=== PATIENT | female | born 1990 | race Caucasian/White ===

== ENCOUNTER 2018-01-21 20:21 | Emergency (ER) | payer OTHER ==
[2018-01-21] MEDS ORDERED: BABY ASPIRIN 81 MG CHEW PO ONE (20:49)
[2018-01-21] MEDS ORDERED: Sodium Chloride 0.9% 1000 ML 1,000 ML IV SCH (21:00)
[2018-01-21 21:10] LABS: BASOPHIL % 0.4 % (0.0-0.4); Basophil (Absolute #) 0.03 (0-0.4); Eosinophil % 1.6 % (0.00-5.0); Eosinophil (Absolute #) 0.13 (0-0.5); Granulocyte Absolute (ANC) 4.47 (1.4-6.9); Granulocytes % 54.7 % (36.0-66.0); Hematocrit 38.1 % (35-47); Hemoglobin 12.8 gm/dl (12.0-16.0); Lymphocyte (Absolute #) 3.05 (1.0-4.6); Lymphocytes % 37.4 % (24.0-44.0); Mean Cell Volume 86.8 fl (78-100); Mean Corpuscular Hemoglobin 29.2 pg (26-32); Mean Corpuscular Hgb Concent. 33.6 g/dl (32-36); Mean Platelet Volume 10.6 fl (6-9.5); Monocyte (Absolute #) 0.48 (0.0-1.3); Monocytes % 5.9 % (0.0-12.0); Platelet Count 325 K/mm3 (150-450); Red Blood Count 4.39 M/mm3 (4.1-5.4); Red Cell Distribution Width 13.4 % (11.5-14.0); White Blood Count 8.2 K/mm3 (4.0-10.5)
[2018-01-21] MEDS ORDERED: Sodium Chloride 0.9% 1000 ML 1,000 ML ONE (21:16)
[2018-01-21] MEDS ORDERED: BABY ASPIRIN 81 MG CHEW ONE (21:16)
[2018-01-21] MEDS ORDERED: Zofran 4 MG/2 ML VIAL IV ONE (21:25)
[2018-01-21] MEDS ORDERED: SUBLIMAZE 100 MCG/2 ML IV ONE (21:26)
--- NOTE | 2018-01-21 21:26 | ERPHSYRPT ---
- History of Present Illness Time Seen by Provider: 01/21/18 20:35 Historian: patient Exam Limitations: clinical condition Patient Subjective Stated Complaint: Pt arrives to ER with c/o chest pain intermittently for past couple days, became worse today at 1100 while sitting at work and became worse when home at 1700. Pt took Xanax at 1500 thinking was panic attac, denies it helping. points to right side of chest for pain that is tightness except when taking a deep breath becomes stabbing pain. Denies pain relieving factors. pt also c/o lightheadedness while driving home from work around 1630 and nausea all day without vomiting. Triage Nursing Assessment: Pt is tearfull during assessment and hyperventilating. Physician History: PATIENT WITH A HISTORY OF ANXIETY, LOWER EXTREMITY LYMPHEDEMA COMPLAINS OF SHARP RIGHT UPPER CHEST PAINS EXACERBATED UPON INSPIRATION, HAS OCCASIONAL COUGH. DENIES FEVER, CHILLS, DIFFICULTY BREATHING OR DYSPNEA. Timing/Duration: day(s) Activities at Onset: activity Quality: sharpness Location: other (RIGHT SIDED CHEST PAIN) Chest Pain Radiation: no radiation Severity of Pain-Max: moderate Severity of Pain-Current: moderate Modifying Factors: Improves With: breathing, change in position Associated Symptoms: cough, hurts to breathe Prior Chest Pain/Cardiac Workup: no prior chest pain Nitro Today/Relief: no nitro taken today Aspirin Treatment Today: 81 mg x 4, provided by ED Allergies/Adverse Reactions: peanut Allergy (Severe, Verified 01/21/18 20:41) Anaphylactic Reaction Penicillins Allergy (Verified 01/21/18 20:41) Home Medications: ALPRAZolam [Xanax ER 0.5MG] 0.5 mg PO 01/21/18 [History] Fluoxetine HCl [Prozac] 40 mg PO DAILY 01/21/18 [History] - Review of Systems Constitutional: No Fever, No Chills Eyes: No Symptoms Ears, Nose, & Throat: No Symptoms Respiratory: Cough, No Dyspnea Cardiac: Chest Pain, No Edema, No Syncope Abdominal/Gastrointestinal: No Abdominal Pain, No Nausea, No Vomiting, No Diarrhea Genitourinary Symptoms: No Symptoms, No Dysuria Musculoskeletal: No Symptoms, No Back Pain, No Neck Pain Skin: No Rash Neurological: No Dizziness, No Focal Weakness, No Sensory Changes Psychological: No Symptoms Endocrine: No Symptoms All Other Systems: Reviewed and Negative - Past Medical History Pertinent Past Medical History: Yes Cardiac History: Other Psycho-Social History: Anxiety Other Medical History: was told at [facility] and home when 21 years old had some congestive heart failure sx. - Past Surgical History Past Surgical History: Yes Gastrointestinal: Other Other Surgical History: colonoscopy - Social History Smoking Status: Never smoker Exposure to second hand smoke: No Drug Use: none Patient Lives Alone: No - Female History Hx Now: No - Nursing Vital Signs Nursing Vital Signs: Initial Vital Signs Temperature 98.4 F 01/21/18 20:25 Pulse Rate 97 H 01/21/18 20:25 Respiratory Rate 20 01/21/18 20:25 Blood Pressure 155/107 01/21/18 20:25 O2 Sat by Pulse Oximetry 100 01/21/18 20:25 Pain Scale Pain Intensity 6 - Physical Exam General Appearance: no apparent distress, alert Eye Exam: PERRL/EOMI, eyes nml inspection Ears, Nose, Throat Exam: normal ENT inspection, moist mucous membranes Neck Exam: normal inspection, non-tender, supple, full range of motion Respiratory Exam: normal breath sounds, chest tenderness (MARKED TENDERNESS RIGHT HEMITHORAX MID CLAVICULAR LINE 4TH TO 5TH INTERCOSTAL SPACE), lungs clear , No respiratory distress Cardiovascular Exam: regular rate/rhythm, normal heart sounds Gastrointestinal/Abdomen Exam: soft, No tenderness, No mass Back Exam: normal inspection, No CVA tenderness, No vertebral tenderness Extremity Exam: normal inspection, normal range of motion, swelling (BILATERAL LOWER EXTREMITY LYMPHEDEMA) Neurologic Exam: alert, oriented x 3, cooperative, normal mood/affect, sensation nml, No motor deficits Skin Exam: normal color, warm, dry SpO2: 100 Oxygen Delivery: Room Air - Course EKG Interpreted by Me: RATE, Sinus Rhythm, NORMAL AXIS, Non-specific ST Changes - Radiology Exams Chest X-ray Interpretation: Interpreted by me (RIGHT INFRAHILAR INFILTRATE) Ordered Tests: Active Orders 24 hr Category Date Time Status Ore [employer]er STAT Care 01/21/18 20:50 Active EKG-ER Only STAT Care 01/21/18 20:49 Active IV Insertion STAT Care 01/21/18 20:49 Active CHEST 1 VIEW (PORTABLE) Stat Exams 01/21/18 20:50 Taken CBC W DIFF Stat Lab 01/21/18 21:00 Completed CMP Stat Lab 01/21/18 21:00 Completed D-DIMER QUANTITATION Stat Lab 01/21/18 21:00 Completed HCG,QUALITATIVE URINE Stat Lab 01/21/18 Completed PROTIME WITH INR Stat Lab 01/21/18 21:00 Completed TROPONIN Q3H Lab 01/21/18 21:00 Completed TROPONIN Q3H Lab 01/22/18 00:00 Ordered TROPONIN Q3H Lab 01/22/18 03:00 Ordered TROPONIN Q3H Lab 01/22/18 06:00 Ordered TROPONIN Q3H Lab 01/22/18 09:00 Ordered Urine Triage Profile Stat Lab 01/21/18 21:23 Completed Medication Summary Generic Name Dose Route Start Last Admin Trade Name Freq PRN Reason Stop Dose Admin Sodium Chloride 1,000 mls @ 100 mls/hr 01/21/18 21:00 01/21/18 21:22 Sodium Chloride 0.9% 1000 Ml IV 02/20/18 20:59 100 mls/hr .Q10H MISSAEL Administration Discontinued Medications Generic Name Dose Route Start Last Admin Trade Name Freq PRN Reason Stop Dose Admin Aspirin 324 mg 01/21/18 20:49 01/21/18 21:22 Baby Aspirin 81 Mg Chew PO 01/21/18 20:50 324 mg STAT ONE Administration Aspirin Confirm 01/21/18 21:16 Baby Aspirin 81 Mg Chew Administered 01/21/18 21:17 Dose 324 mg .ROUTE .STK-MED ONE Fentanyl Citrate 100 mcg 01/21/18 21:26 01/21/18 21:34 Sublimaze 100 Mcg/2 Ml IV 01/21/18 21:27 100 mcg STAT ONE Administration Fentanyl Citrate Confirm 01/21/18 21:28 Sublimaze 100 Mcg/2 Ml Administered 01/21/18 21:29 Dose 100 mcg .ROUTE .STK-MED ONE Ketorolac Tromethamine 60 mg 01/21/18 22:39 01/21/18 22:44 Toradol 30 Mg Injection IM 01/21/18 22:40 60 mg STAT ONE Administration Ketorolac Tromethamine Confirm 01/21/18 22:38 Toradol 30 Mg Injection Administered 01/21/18 22:39 Dose 60 mg .ROUTE .STK-MED ONE Ketorolac Tromethamine Confirm 01/21/18 22:42 Toradol 30 Mg Injection Administered 01/21/18 22:43 Dose 60 mg .ROUTE .STK-MED ONE Ondansetron HCl 4 mg 01/21/18 21:25 01/21/18 21:34 Zofran 4 Mg/2 Ml Vial IV 01/21/18 21:26 4 mg STAT ONE Administration Ondansetron HCl Confirm 01/21/18 21:28 Zofran 4 Mg/2 Ml Vial Administered 01/21/18 21:29 Dose 4 mg .ROUTE .[facility] ONE Lab/Rad Data: Laboratory Result Diagrams 01/21/18 21:00 01/21/18 21:00 Laboratory Results 01/21/18 01/21/18 01/21/18 Range/Units Unknown 21:23 21:00 WBC (4.0-10.5) K/mm3 RBC (4.1-5.4) M/mm3 Hgb (12.0-16.0) gm/dl Hct (35-47) % MCV (78-100) fl MCH (26-32) pg MCHC (32-36) g/dl RDW (11.5-14.0) % Plt Count (150-450) K/mm3 MPV (6-9.5) fl Gran % (36.0-66.0) % Eos # (Auto) (0-0.5) Absolute Lymphs (auto) (1.0-4.6) Absolute Monos (auto) (0.0-1.3) Lymphocytes % (24.0-44.0) % Monocytes % (0.0-12.0) % Eosinophils % (0.00-5.0) % Basophils % (0.0-0.4) % Absolute Granulocytes (1.4-6.9) Basophils # (0-0.4) PT (9.95-12.35) SECONDS INR (0.8-3.0) D-Dimer (215-500) ng/mL Sodium (137-145) mmol/L Potassium (3.5-5.1) mmol/L Chloride (98-107) mmol/L Carbon Dioxide (22-30) mmol/L Anion Gap (5-15) MEQ/L BUN (7-17) mg/dL Creatinine (0.52-1.04) mg/dL Estimated GFR ML/MIN Glucose (74-106) mg/dL Calcium (8.4-10.2) mg/dL Total Bilirubin (0.2-1.3) mg/dL AST (14-36) U/L ALT (0-35) U/L Alkaline Phosphatase (38-126) U/L Troponin I < 0.012 (0.000-0.034) ng/mL Serum Total Protein (6.3-8.2) g/dL Albumin (3.5-5.0) g/dL Urine HCG, Qual NEGATIVE (Negative) Urine Opiates Level NEGATIVE (NEGATIVE) Ur Methadone NEGATIVE (NEGATIVE) Urine Barbiturates NEGATIVE (NEGATIVE) Ur Phencyclidine (PCP) NEGATIVE (NEGATIVE) Urine Amphetamine NEGATIVE (NEGATIVE) U Benzodiazepine Level POSITIVE (NEGATIVE) Urine Cocaine NEGATIVE (NEGATIVE) Urine Marijuana (THC) NEGATIVE (NEGATIVE) 01/21/18 01/21/18 01/21/18 Range/Units 21:00 21:00 21:00 WBC 8.2 (4.0-10.5) K/mm3 RBC 4.39 (4.1-5.4) M/mm3 Hgb 12.8 (12.0-16.0) gm/dl Hct 38.1 (35-47) % MCV 86.8 (78-100) fl MCH 29.2 (26-32) pg MCHC 33.6 (32-36) g/dl RDW 13.4 (11.5-14.0) % Plt Count 325 (150-450) K/mm3 MPV 10.6 H (6-9.5) fl Gran % 54.7 (36.0-66.0) % Eos # (Auto) 0.13 (0-0.5) Absolute Lymphs (auto) 3.05 (1.0-4.6) Absolute Monos (auto) 0.48 (0.0-1.3) Lymphocytes % 37.4 (24.0-44.0) % Monocytes % 5.9 (0.0-12.0) % Eosinophils % 1.6 (0.00-5.0) % Basophils % 0.4 (0.0-0.4) % Absolute Granulocytes 4.47 (1.4-6.9) Basophils # 0.03 (0-0.4) PT 11.6 (9.95-12.35) SECONDS INR 1.00 (0.8-3.0) D-Dimer < 215 L (215-500) ng/mL Sodium 142 (137-145) mmol/L Potassium 4.1 (3.5-5.1) mmol/L Chloride 106 (98-107) mmol/L Carbon Dioxide 25 (22-30) mmol/L Anion Gap 14.7 (5-15) MEQ/L BUN 16 (7-17) mg/dL Creatinine 0.83 (0.52-1.04) mg/dL Estimated GFR > 60.0 ML/MIN Glucose 97 (74-106) mg/dL Calcium 9.5 (8.4-10.2) mg/dL Total Bilirubin 0.20 (0.2-1.3) mg/dL AST 20 (14-36) U/L ALT 22 (0-35) U/L Alkaline Phosphatase 85 (38-126) U/L Troponin I (0.000-0.034) ng/mL Serum Total Protein 7.5 (6.3-8.2) g/dL Albumin 4.4 (3.5-5.0) g/dL Urine HCG, Qual (Negative) Urine Opiates Level (NEGATIVE) Ur Methadone (NEGATIVE) Urine Barbiturates (NEGATIVE) Ur Phencyclidine (PCP) (NEGATIVE) Urine Amphetamine (NEGATIVE) U Benzodiazepine Level (NEGATIVE) Urine Cocaine (NEGATIVE) Urine Marijuana (THC) (NEGATIVE) - Progress Progress: improved Progress Note: 01/21/18 23:29 IV NORMAL SALINE 200ML/HR, ZOFRAN 4MG, FENTANYL 0.1MG, IV, TORADOL 60MG IM Counseled pt/family regarding: lab results, diagnosis, rad results - Departure Time of Disposition: 21:34 Departure Disposition: Home Clinical Impression: PLEURISY, ACUTE BRONCHITIS Condition: Stable Critical Care Time: No Additional Instructions: ANTIBIOTIC ZITHROMAX 250MG, 2 TABLETS DAY 1 FOLLOWED BY 1 TABLET DAILY FOR 4 DAYS. TORADOL 10MG EVERY 6 HOURS FOR PAIN, TYLENOL #3 EVERY 6 HOURS FOR BREAK THROUGH PAIN. CONSULT YOUR PRIMARY CARE PROVIDER FOR FOLLOWUP. Prescriptions: Codeine Phosphate/APAP #3 [Tylenol #3 Tablet] 1 tab PO Q6H PRN PRN #8 tablet PRN Reason: Pain Ketorolac Tromethamine [Toradol] 10 mg PO Q6H PRN PRN #20 tablet PRN Reason: Pain Azithromycin 250 mg [Zithromax 250 MG TABLET] 250 mg PO ZPACK #6 tablet
[2018-01-21 21:27] LABS: D-DIMER QUANTITATION < 215 ng/mL (215-500)
[2018-01-21] MEDS ORDERED: SUBLIMAZE 100 MCG/2 ML ONE (21:28)
[2018-01-21] MEDS ORDERED: Zofran 4 MG/2 ML VIAL ONE (21:28)
[2018-01-21 21:29] LABS: ALBUMIN 4.4 g/dL (3.5-5.0); ALKALINE PHOSPHATASE 85 U/L (38-126); ANION GAP 14.7 MEQ/L (5-15); BLOOD UREA NITROGEN 16 mg/dL (7-17); CHLORIDE 106 mmol/L (98-107); Calcium 9.5 mg/dL (8.4-10.2); Carbon Dioxide 25 mmol/L (22-30); Creatinine 1 0.83 mg/dL (0.52-1.04); Glucose 97 mg/dL (74-106); Potassium 4.1 mmol/L (3.5-5.1); SGOT/AST 20 U/L (14-36); SGPT/ALT 22 U/L (0-35); SODIUM 142 mmol/L (137-145); Total Protein 7.5 g/dL (6.3-8.2)
[2018-01-21 21:47] LABS: Amphetamine,Urine NEGATIVE (NEGATIVE); Barbiturate,Urine NEGATIVE (NEGATIVE); Benzodiazepine,Urine POSITIVE (NEGATIVE); Cocaine,Urine NEGATIVE (NEGATIVE); Methadone,Urine NEGATIVE (NEGATIVE); Opiate,Urine NEGATIVE (NEGATIVE); PCP,Urine NEGATIVE (NEGATIVE); THC,Urine NEGATIVE (NEGATIVE)
[2018-01-21] MEDS ORDERED: TORAdol 30 mg Injection ONE ×2 (22:38→22:42)
[2018-01-21] MEDS ORDERED: TORAdol 30 mg Injection IM ONE (22:39)
[2018-01-21 23:09] VITALS: BP 115/67; PULSE 77
[2018-01-21] MEDS ORDERED: Zithromax 250 MG TABLET PO ONE (23:23)
[2018-01-21 23:30] VITALS: O2SAT 100
[2018-01-21] MEDS ORDERED: Zithromax 250 MG TABLET ONE (23:51)
--- NOTE | 2018-01-22 15:57 | XRAY ---
Exam: AP portable chest film from 01/21/2018. Comparison: None. Indication: Chest pain. Findings: The heart size and contour are normal. The lungs are adequately expanded. EKG leads are seen in place. The mirian and mediastinal structures appear unremarkable. I see no air space infiltrates, vascular congestion, pneumothorax, or pleural fluid. No acute osseous process is seen. Impression: 1. No acute cardiopulmonary disease is seen.
== END 2018-01-22 00:08 | disposition home or self-care (01) ==
LOC: ED 20:21
DX: R09.1 Pleurisy (principal); J20.9 Acute bronchitis, unspecified; Z79.899 Other long term (current) drug therapy
CPT/HCPCS: 36000; 36415; 71045; 80053; 80307; 84484; 84703; 85025; 85379; 85610; 93005; 93041; 96360; 96361; 96372; 96374; 96375; 99284; J1885; J2405; J3010; A9270-GY

== ENCOUNTER 2019-01-25 12:40 | Emergency (ER) | payer OTHER ==
--- NOTE | 2019-01-25 13:50 | ERPHSYRPT ---
- History of Present Illness Time Seen by Provider: 01/25/19 13:38 Source: patient Exam Limitations: no limitations Patient Subjective Stated Complaint: pt co pain to upper jaw, she states she has a bad tooth and has apt on sunday to be seen by dentist and that he called in a rx for antibotics for it, she has taken tylenol Triage Nursing Assessment: pt alert, walked in, resp easy, skin w/d/p. pt has cavity to upper tooth, no redness noted, she states it is hard to open mouth all the way Physician History: Pt started c/o pain in her right upper molar teeth about one week ago, denies any injury, she called a dentist, called in Amoxicillin, she states, she has never had allergic reaction to Penicillin, her Penicillin allergy has been in her chart as a mistake. She took Amoxicillin a lot of time, she did not start taking it yet at this time. She denies vomiting, high fever, but she has headaches, denies difficulty swallowing pills. Timing/Duration: gradual onset Severity: severe ENT Location: dental Prearrival Treatment: no prearrival treatment Associated Symptoms: headache, jaw pain (right), tooth pain, No facial pain/ swelling, No sore throat, No voice change Allergies/Adverse Reactions: peanut Allergy (Severe, Verified 01/25/19 12:55) Anaphylactic Reaction Penicillins Allergy (Verified 01/25/19 12:55) Home Medications: Amoxicillin 500 mg Cap [Amoxil 500 mg] 500 mg TID 01/25/19 [History] Duloxetine HCl 30 mg [Cymbalta 30 MG Capsule] 60 mg DAILY 01/25/19 [ History] Phentermine HCl [Adipex-P] 1 tab DAILY 01/25/19 [History] Hx Tetanus, Diphtheria Vaccination/Date Given: Yes (2014) Hx Influenza Vaccination/Date Given: No Hx Pneumococcal Vaccination/Date Given: No Immunizations Up to Date: Yes - Review of Systems Constitutional: No Symptoms Eyes: No Symptoms Ears, Nose, & Throat: Other (dental pain) Respiratory: No Symptoms Cardiac: No Symptoms Abdominal/Gastrointestinal: No Symptoms Genitourinary Symptoms: No Symptoms Musculoskeletal: No Symptoms Skin: No Symptoms Neurological: Headache All Other Systems: Reviewed and Negative - Past Medical History Pertinent Past Medical History: Yes Cardiac History: Other Psycho-Social History: Depression Other Medical History: was told at [facility] when 21 years old had some congestive heart failure sx. - Past Surgical History Past Surgical History: No Gastrointestinal: Other Other Surgical History: colonoscopy - Social History Smoking Status: Never smoker Exposure to second hand smoke: No Drug Use: none Patient Lives Alone: Yes - Female History Hx Last Menstrual Period: 3 weeks ago Hx Now: No - Nursing Vital Signs Nursing Vital Signs: Initial Vital Signs Temperature 97.0 F 01/25/19 12:44 Pulse Rate 75 01/25/19 12:44 Respiratory Rate 16 01/25/19 12:44 Blood Pressure 141/92 01/25/19 12:44 O2 Sat by Pulse Oximetry 97 01/25/19 12:44 Pain Scale Pain Intensity 5 - Physical Exam General Appearance: no apparent distress Eye Exam: bilateral eye: PERRL, EOMI Nasal Exam: normal inspection Throat Exam: normal, pharynx normal, dental tenderness (right, upper, first molar (#3) with caries no gum swelling, or discharge, no facial swelling.), moist mucus membranes, No pharynx swelling, No tongue swollen, No voice changes Neck Exam: normal inspection, non-tender, supple, No JVD, No lymphadenopathy (R) , No lymphadenopathy (L) Cardiovascular/Respiratory Exam: chest non-tender, normal breath sounds, No no JVD Abdominal Exam: non-tender Neurologic Exam: alert, oriented x 3, cooperative, normal mood/affect Skin Exam: normal color, warm, dry, No rash, No diaphoresis SpO2 Interpretation: normal SpO2: 100 O2 Delivery: Room Air - Course Nursing assessment & vital signs reviewed: Yes - Progress Progress: unchanged Progress Note: 01/25/19 13:54 Pt was given Ultram 50 mg, suggested to start Amoxicillin as directed by dentist , rinse her mouth frequently with warm saline solution and keep appointment with dentist as scheduled in 2 days. Counseled pt/family regarding: diagnosis, need for follow-up - Departure Departure Disposition: Home Clinical Impression: Dental caries Condition: Stable Critical Care Time: No Instructions: Dental Pain (DC) Additional Instructions: Rinse mouth frequently with warm saline solution and start Amoxicillin as directed by dentist, keep appointment with dentist as scheduled in 2 days! Return if severe headaches, vomiting, fever> 102 F, severe throat swelling, unable to swallow! Prescriptions: Tramadol HCl 50 mg [Ultram 50 mg] 50 mg PO Q6H PRN #10 tablet PRN Reason: Pain
[2019-01-25] MEDS ORDERED: ULTRAM 50 MG PO ONE (13:51)
[2019-01-25] MEDS ORDERED: ULTRAM 50 MG ONE (13:58)
[2019-01-25 14:14] VITALS: BP 138/76; PULSE 79; O2SAT 99
== END 2019-01-25 14:13 | disposition home or self-care (01) ==
LOC: ED 12:40
DX: K02.9 Dental caries, unspecified (principal)
CPT/HCPCS: 99283; A9270-GY

== ENCOUNTER 2019-10-14 14:32 | Emergency (ER) | payer BC, OTHER ==
[2019-10-14] MEDS ORDERED: MOTRIN 600 MG PO STA (14:56)
[2019-10-14] MEDS ORDERED: MOTRIN 600 MG ONE (15:15)
[2019-10-14 15:42] LABS: BASOPHIL % 0.3 % (0.0-0.4); Basophil (Absolute #) 0.02 (0-0.4); Eosinophil % 2.5 % (0.00-5.0); Eosinophil (Absolute #) 0.17 (0-0.5); Hematocrit 38.3 % (35-47); Hemoglobin 12.4 gm/dl (12.0-16.0); Lymphocytes % 20.6 % (24.0-44.0); Mean Cell Volume 86.3 fl (78-100); Mean Corpuscular Hemoglobin 27.9 pg (26-32); Mean Corpuscular Hgb Concent. 32.4 g/dl (32-36); Mean Platelet Volume 10.6 fl (7.5-11.0); Monocytes % 7.4 % (0.0-12.0); Neutrophil % 69.2 % (36.0-66.0); Platelet Count 292 K/mm3 (150-450); Red Blood Count 4.44 M/mm3 (4.1-5.4); Red Cell Distribution Width 13.5 % (11.5-14.0); White Blood Count 6.8 K/mm3 (4.0-10.5)
[2019-10-14 16:04] LABS: ALKALINE PHOSPHATASE 86 U/L (38-126); ANION GAP 14.1 MEQ/L (5-15); BLOOD UREA NITROGEN 10 mg/dL (7-17); CHLORIDE 103 mmol/L (98-107); Calcium 9.3 mg/dL (8.4-10.2); Carbon Dioxide 26 mmol/L (22-30); Creatinine 1 0.72 mg/dL (0.52-1.04); Glucose 101 mg/dL (74-106); Potassium 3.7 mmol/L (3.5-5.1); SGOT/AST 19 U/L (14-36); SGPT/ALT 17 U/L (0-35); SODIUM 139 mmol/L (137-145); Total Protein 7.5 g/dL (6.3-8.2)
[2019-10-14 16:05] LABS: Appearance SLIGHTLY CLOUDY (CLEAR); Bacteria MODERATE /HPF (NEGATIVE); Bilirubin NEGATIVE (NEGATIVE); Blood NEGATIVE Ery/ul (0-5); Epithelial Cells FEW /HPF (FEW); Glucose NEGATIVE (NEGATIVE); Ketones NEGATIVE (NEGATIVE); Leukocyte Esterase LARGE (NEGATIVE); Nitrite NEGATIVE (NEGATIVE); Protein,Urine Dip NEGATIVE (Negative); Specific Gravity 1.018 (1.005-1.025); Urobilinogen NEGATIVE mg/dL (0-1)
[2019-10-14] MEDS ORDERED: solu-MEDROL 125 MG IV ONE (16:08)
[2019-10-14 16:14] LABS: INFLUENZA A NEGATIVE (NEGATIVE); INFLUENZA B NEGATIVE (NEGATIVE); RESPIRATORY SYNCTIAL VIRUS NEGATIVE (Negative)
--- NOTE | 2019-10-14 16:17 | ERPHSYRPT ---
- History of Present Illness Time Seen by Provider: 10/14/19 15:25 Source: patient Exam Limitations: no limitations Patient Subjective Stated Complaint: Muscle pain Triage Nursing Assessment: Patient ambulated back to ED and transferred self to bed. Patient A+O x3. Patient's skin pink, warm and dry. Patient complains of severe muscle aches starting last . Patient states she also has a red rash noted to left forearm. Patient states her entire body aches 8/10. Patient states she is outdoors a lot and has had ticks on her in the past month. Physician History: Patient is a 28-year-old female presents to our ED with complaints of polyarthralgia and myalgia. Symptoms started approximately 5 days ago. Pain described as an ache that is constant. Pain worse in the morning. No associated trauma. No fever. No nausea or vomiting. Patient admits to a rash in her left forearm. Pain rated 8 out of 10. Symptoms are constant. Patient denies a history of the same. Patient advises staff that she is concerned for possible Lyme disease. She observed a tick on her body approximately 1 month ago. However symptoms started approximately 5 days ago. Patient voices no other complaints at this time. Timing/Duration: day(s) (5 days ago.) Severity: moderate Modifying Factors: Improves With: movement Associated Symptoms: No nausea, No vomiting, No abdominal pain, No diaphoresis, No cough, No chills, No chest pain, No fever, No loss of appetite, No weakness Allergies/Adverse Reactions: peanut Allergy (Severe, Verified 10/14/19 15:01) Anaphylactic Reaction Penicillins Allergy (Verified 10/14/19 15:01) Home Medications: Duloxetine HCl 30 mg [Cymbalta 30 MG Capsule] 60 mg PO BID 01/25/19 [ History] Phentermine HCl [Adipex-P] 1 tab PO DAILY 01/25/19 [History] Alprazolam 0.5 mg [xanAX 0.5 MG] 1 tab PO Q12H PRN PRN 10/14/19 [History] Hx Tetanus, Diphtheria Vaccination/Date Given: Yes (2014) Hx Influenza Vaccination/Date Given: Yes Hx Pneumococcal Vaccination/Date Given: No Immunizations Up to Date: Yes Travel Risk - International Travel Have you traveled outside of the country in past 3 weeks: No Have you or anyone close to you been diagnosed with or: No Do your reside in a community with a known COVID-19 case?: Yes If Yes where:: [facility] - Coronavirus Screening Has patient experienced Coronavirus symptoms: Yes Symptoms experienced: muscle pain - Review of Systems Constitutional: No Symptoms, No Fever, No Chills Eyes: No Symptoms Ears, Nose, & Throat: No Symptoms Respiratory: No Symptoms, No Cough, No Dyspnea Cardiac: No Symptoms, No Chest Pain, No Edema, No Syncope Abdominal/Gastrointestinal: No Symptoms, No Abdominal Pain, No Nausea, No Vomiting, No Diarrhea Genitourinary Symptoms: No Symptoms, No Dysuria Musculoskeletal: No Symptoms, No Back Pain, No Neck Pain Skin: No Symptoms, No Rash Neurological: No Symptoms, No Dizziness, No Focal Weakness, No Sensory Changes Psychological: No Symptoms Endocrine: No Symptoms Hematologic/Lymphatic: No Symptoms All Other Systems: Reviewed and Negative - Past Medical History Pertinent Past Medical History: Yes Cardiac History: Other Psycho-Social History: Depression Other Medical History: was told at [facility] when 21 years old had some congestive heart failure sx. - Past Surgical History Past Surgical History: No Gastrointestinal: Other Other Surgical History: colonoscopy - Social History Smoking Status: Never smoker Exposure to second hand smoke: No Drug Use: none Patient Lives Alone: Yes - Female History Hx Last Menstrual Period: nexplannon Hx Now: No - Nursing Vital Signs Nursing Vital Signs: Initial Vital Signs Temperature 97.9 F 10/14/19 15:06 Pulse Rate 101 H 10/14/19 15:06 Respiratory Rate 18 10/14/19 15:06 Blood Pressure 158/82 10/14/19 15:06 O2 Sat by Pulse Oximetry 98 10/14/19 15:06 Pain Scale Pain Intensity 0 - Physical Exam General Appearance: no apparent distress, alert Eye Exam: PERRL/EOMI, eyes nml inspection Ears, Nose, Throat Exam: normal ENT inspection, TMs normal, pharynx normal, moist mucous membranes Neck Exam: normal inspection, non-tender, supple, full range of motion Respiratory Exam: normal breath sounds, lungs clear, No respiratory distress Cardiovascular Exam: regular rate/rhythm, normal heart sounds, normal peripheral pulses Gastrointestinal/Abdomen Exam: soft, normal bowel sounds, No tenderness, No mass Back Exam: normal inspection, normal range of motion, No CVA tenderness, No vertebral tenderness Extremity Exam: normal inspection, normal range of motion, pelvis stable, other (Patient complains of arthralgias and myalgias in all her joints.) Neurologic Exam: alert, oriented x 3, cooperative, normal mood/affect, nml cerebellar function, nml station & gait, sensation nml, No motor deficits Skin Exam: normal color, warm, dry, No rash Lymphatic Exam: No adenopathy SpO2 Interpretation: normal SpO2: 99 O2 Delivery: Room Air - Course Nursing assessment & vital signs reviewed: Yes Ordered Tests: Active Orders 24 hr Category Date Time Status IV Insertion STAT Care 10/14/19 14:56 Active Pulse Oximetry (ED) STAT Care 10/14/19 14:56 Active BLOOD CULTURE Stat Lab 10/14/19 15:20 Received CBC W DIFF Stat Lab 10/14/19 15:10 Completed CK-Creatinine Phosphokinase Stat Lab 10/14/19 14:32 Completed CMP Stat Lab 10/14/19 15:10 Completed CULTURE,URINE Stat Lab 10/14/19 15:55 Received HCG,QUALITATIVE URINE Stat Lab 10/14/19 15:55 Completed UA W/RFX UR CULTURE Stat Lab 10/14/19 15:55 Completed Medication Summary Discontinued Medications Generic Name Dose Route Start Last Admin Trade Name Freq PRN Reason Stop Dose Admin Hydromorphone HCl 1 mg 10/14/19 18:29 10/14/19 18:33 Hydromorphone 1 Mg/Ml Ampule IV 10/14/19 18:30 1 mg STAT ONE Administration Hydromorphone HCl Confirm 10/14/19 18:32 Hydromorphone 1 Mg/Ml Ampule Administered 10/14/19 18:33 Dose 1 mg .ROUTE .STK-MED ONE Ibuprofen 600 mg 10/14/19 14:56 10/14/19 15:16 Motrin 600 Mg PO 10/14/19 14:57 600 mg STAT STA Administration Ibuprofen Confirm 10/14/19 15:15 Motrin 600 Mg Administered 10/14/19 15:16 Dose 600 mg .ROUTE .STK-MED ONE Methylprednisolone Sodium Succinate 125 mg 10/14/19 16:08 10/14/19 16:23 Solu-Medrol 125 Mg IV 10/14/19 16:09 125 mg STAT ONE Administration Methylprednisolone Sodium Succinate Confirm 10/14/19 16:23 Solu-Medrol 125 Mg Administered 10/14/19 16:24 Dose 125 mg .ROUTE .STK-MED ONE Morphine Sulfate 4 mg 10/14/19 16:48 10/14/19 16:53 Morphine Sulfate 4 Mg Inj IV 10/14/19 16:49 4 mg STAT ONE Administration Morphine Sulfate Confirm 10/14/19 16:51 Morphine Sulfate 4 Mg Inj Administered 10/14/19 16:52 Dose 4 mg .ROUTE .STK-MED ONE Lab/Rad Data: Laboratory Result Diagrams 10/14/19 15:10 10/14/19 15:10 Laboratory Results 10/14/19 10/14/19 10/14/19 Range/Units 15:55 15:55 15:10 WBC (4.0-10.5) K/mm3 RBC (4.1-5.4) M/mm3 Hgb (12.0-16.0) gm/dl Hct (35-47) % MCV (78-100) fl MCH (26-32) pg MCHC (32-36) g/dl RDW (11.5-14.0) % Plt Count (150-450) K/mm3 MPV (7.5-11.0) fl Gran % (36.0-66.0) % Eos # (Auto) (0-0.5) Absolute Lymphs (auto) (1.0-4.6) Absolute Monos (auto) (0.0-1.3) Lymphocytes % (24.0-44.0) % Monocytes % (0.0-12.0) % Eosinophils % (0.00-5.0) % Basophils % (0.0-0.4) % Absolute Granulocytes (1.4-6.9) Basophils # (0-0.4) Sodium (137-145) mmol/L Potassium (3.5-5.1) mmol/L Chloride (98-107) mmol/L Carbon Dioxide (22-30) mmol/L Anion Gap (5-15) MEQ/L BUN (7-17) mg/dL Creatinine (0.52-1.04) mg/dL Estimated GFR ML/MIN Glucose (74-106) mg/dL Calcium (8.4-10.2) mg/dL Total Bilirubin (0.2-1.3) mg/dL AST (14-36) U/L ALT (0-35) U/L Alkaline Phosphatase (38-126) U/L Creatine Kinase (30-135) U/L Serum Total Protein (6.3-8.2) g/dL Albumin (3.5-5.0) g/dL Urine Color YELLOW (YELLOW) Urine Appearance SLIGHTLY CLOUDY (CLEAR) Urine pH 5.0 (5-6) Ur Specific [place] 1.018 (1.005-1.025) Urine Protein NEGATIVE (Negative) Urine Ketones NEGATIVE (NEGATIVE) Urine Blood NEGATIVE (0-5) Manan/ul Urine Nitrite NEGATIVE (NEGATIVE) Urine Bilirubin NEGATIVE (NEGATIVE) Urine Urobilinogen NEGATIVE (0-1) mg/dL Ur Leukocyte Esterase LARGE (NEGATIVE) Urine WBC (Auto) 6-10 (0-5) /HPF Urine RBC (Auto) 3-5 (0-2) /HPF U Epithel Cells (Auto) FEW (FEW) /HPF Urine Bacteria (Auto) MODERATE (NEGATIVE) /HPF Urine Culture Reflexed YES (NO) Urine Glucose NEGATIVE (NEGATIVE) mg/dL Urine HCG, Qual NEGATIVE (Negative) Influenza Type A Ag NEGATIVE (NEGATIVE) Influenza Type B Ag NEGATIVE (NEGATIVE) RSV (PCR) NEGATIVE (Negative) 10/14/19 10/14/19 10/14/19 Range/Units 15:10 15:10 14:32 WBC 6.8 (4.0-10.5) K/mm3 RBC 4.44 (4.1-5.4) M/mm3 Hgb 12.4 (12.0-16.0) gm/dl Hct 38.3 (35-47) % MCV 86.3 (78-100) fl MCH 27.9 (26-32) pg MCHC 32.4 (32-36) g/dl RDW 13.5 (11.5-14.0) % Plt Count 292 (150-450) K/mm3 MPV 10.6 (7.5-11.0) fl Gran % 69.2 H (36.0-66.0) % Eos # (Auto) 0.17 (0-0.5) Absolute Lymphs (auto) 1.40 (1.0-4.6) Absolute Monos (auto) 0.50 (0.0-1.3) Lymphocytes % 20.6 L (24.0-44.0) % Monocytes % 7.4 (0.0-12.0) % Eosinophils % 2.5 (0.00-5.0) % Basophils % 0.3 (0.0-0.4) % Absolute Granulocytes 4.70 (1.4-6.9) Basophils # 0.02 (0-0.4) Sodium 139 (137-145) mmol/L Potassium 3.7 (3.5-5.1) mmol/L Chloride 103 (98-107) mmol/L Carbon Dioxide 26 (22-30) mmol/L Anion Gap 14.1 (5-15) MEQ/L BUN 10 (7-17) mg/dL Creatinine 0.72 (0.52-1.04) mg/dL Estimated GFR > 60.0 ML/MIN Glucose 101 (74-106) mg/dL Calcium 9.3 (8.4-10.2) mg/dL Total Bilirubin 0.30 (0.2-1.3) mg/dL AST 19 (14-36) U/L ALT 17 (0-35) U/L Alkaline Phosphatase 86 (38-126) U/L Creatine Kinase 30 (30-135) U/L Serum Total Protein 7.5 (6.3-8.2) g/dL Albumin 4.0 (3.5-5.0) g/dL Urine Color (YELLOW) Urine Appearance (CLEAR) Urine pH (5-6) Ur Specific [place] (1.005-1.025) Urine Protein (Negative) Urine Ketones (NEGATIVE) Urine Blood (0-5) [place]ul Urine Nitrite (NEGATIVE) Urine Bilirubin (NEGATIVE) Urine Urobilinogen (0-1) mg/dL Ur Leukocyte Esterase (NEGATIVE) Urine WBC (Auto) (0-5) /HPF Urine RBC (Auto) (0-2) /HPF U Epithel Cells (Auto) (FEW) /HPF Urine Bacteria (Auto) (NEGATIVE) /HPF Urine Culture Reflexed (NO) Urine Glucose (NEGATIVE) mg/dL Urine HCG, Qual (Negative) Influenza Type A Ag (NEGATIVE) Influenza Type B Ag (NEGATIVE) RSV (PCR) (Negative) - Progress Progress: improved Discussed with : Pattie (Patient initially requested admission. After discussion with Dr. Alonso we treated patient's pain a little more aggressively and patient's pain resolved. Patient now requesting discharge. Patient will follow-up with Dr. Alonso or her primary care doctor for the results of the IgG IgM Borrelia burgdorferi titer.) Will see patient in: office Counseled pt/family regarding: lab results, diagnosis, need for follow-up - Departure Departure Disposition: Home Clinical Impression: Arthralgia, Myalgia Condition: Stable Critical Care Time: No Referrals: DOCTOR,NO FAMILY [Primary Care Provider] - EVELYNE ALONSO [ACTIVE STAFF] - Additional Instructions: Please follow-up with Dr. Alonso as recommended for follow-up regarding your Lyme titers/Lyme disease work-up and follow-up regarding your joint and muscle aches. Discharge/Care Plan YUKO HERNANDEZ was seen on 10/14/19 in the Emergency Room. The patient was counseled regarding Diagnosis,Lab results, Imaging studies, need for follow up and when to return to the Emergency Room. Prescriptions given: Discharge Note I have spoken with the patient and/or caregivers. I have explained the patient' s condition, diagnosis and treatment plan based on the information available to me at this time. I have answered the patient's and/or caregiver's questions and addressed any concerns. The patient and/or caregivers have as good understanding of the patient's diagnosis, condition and treatment plan as can be expected at this point. The vital signs have been stable. The patient's condition is stable and appropriate for discharge from the emergency department. The patient will pursue further outpatient evaluation with the primary care physician or other designated or consulting physician as outlined in the discharge instructions. The patient and/or caregivers are agreeable to this plan of care and follow-up instructions have been explained in detail. The patient and/or caregivers have received these instruction. The patient/and or caregivers are aware that any significant change in condition or worsening of symptoms should prompt an immediate return to this or the closest emergency department or call 911.
[2019-10-14] MEDS ORDERED: solu-MEDROL 125 MG ONE (16:23)
[2019-10-14] MEDS ORDERED: MORPHINE SULFATE 4 MG INJ IV ONE (16:48)
[2019-10-14] MEDS ORDERED: MORPHINE SULFATE 4 MG INJ ONE (16:51)
[2019-10-14] MEDS ORDERED: Hydromorphone 1 mg/ml Ampule IV ONE (18:29)
[2019-10-14] MEDS ORDERED: Hydromorphone 1 mg/ml Ampule ONE (18:32)
[2019-10-14 19:17] VITALS: BP 139/77; PULSE 88
[2019-10-14 19:18] VITALS: O2SAT 99
== END 2019-10-14 19:25 | disposition home or self-care (01) ==
LOC: ED 14:32
DX: M25.50 Pain in unspecified joint (principal); M79.10 Myalgia, unspecified site
CPT/HCPCS: 36000; 36415; 80053; 81001; 82550; 84703; 85025; 86617; 86618; 87040; 87086; 87631; 94760; 96374; 96375; 99284; J1170; J2270; J2930; A9270-GY